=== PATIENT | male | born 1945 | race Caucasian/White ===

== ENCOUNTER 2022-11-25 12:30 | Outpatient (CLI) | payer MEDICARE, OTHER | END 2022-11-25 12:31 | disposition home or self-care (01) | LOC: CSHSPEC 12:30 | PROVIDERS: ATTEND Internal Medicine | DX: F03.B0 Unspecified dementia, moderate, without behavioral disturbance, psychotic disturbance, mood disturbance, and anxiety (principal); Z95.0 Presence of cardiac pacemaker; I67.9 Cerebrovascular disease, unspecified; I63.9 Cerebral infarction, unspecified | CPT/HCPCS: 70551; 71045 ==